=== PATIENT | male | born 1950 | race Two or more races ===

== ENCOUNTER 2018-02-25 07:13 | Day surgery (SDC) | payer MEDICARE, MEDICAID ==
[2018-02-25] MEDS ORDERED: MIDAZOLAM 1 MG/ML 2 ML INJ (08:21)
[2018-02-25] MEDS ORDERED: PROPOFOL 20 ML (08:21)
[2018-02-25] MEDS ORDERED: FENTAnyl 50 MCG/ML VIAL (08:21)
== END 2018-02-25 13:17 | disposition home or self-care (01) ==
LOC: GIL 07:13
DX: D50.9 Iron deficiency anemia, unspecified (principal); K64.8 Other hemorrhoids; K29.50 Unspecified chronic gastritis without bleeding; E03.9 Hypothyroidism, unspecified
CPT/HCPCS: 43239; 88305; 88312